=== PATIENT | female | born 1985 | race Caucasian/White ===

== ENCOUNTER 2019-02-22 07:48 | Outpatient (CLI) | payer OTHER | END 2019-02-22 23:59 | disposition home or self-care (01) | LOC: STAR 07:48 → MERGE 08:00 → UNMERGE 08:00 → STAR 23:59 | PROVIDERS: ATTEND Obstetrics & Gynecology Gynecology | DX: Z01.818 Encounter for other preprocedural examination (principal); N94.5 Secondary dysmenorrhea; R10.2 Pelvic and perineal pain | CPT/HCPCS: 36415; 80053; 81001; 84703; 85025; 87086 ==

== ENCOUNTER → 2020-01-09 | Outpatient (CLI) | payer OTHER ==
[~2020-01-09] MED LIST: ESCI10TA10 PO; HYDR-3240 PO; ONDA4TAB7 PO; ZOLP6.253 PO
== END | disposition home or self-care (01) ==
LOC: CFH 10:16
PROVIDERS: ATTEND Urology
DX: N20.0 Calculus of kidney (principal)
CPT/HCPCS: 74176